=== PATIENT | female | born 1955 | race African-American/Black ===

== ENCOUNTER 2018-07-19 11:03 | Emergency (ER) | payer MEDICAID ==
[~2018-07-19] VITALS: Ht 157.5 cm; Wt 81.2 kg
[2018-07-19 11:06] VITALS: Ht 157.5 cm; Wt 81.2 kg
[2018-07-19] MEDS ORDERED: HYDR25TA6 PO ×2 (11:44→12:23)
[2018-07-19] MEDS ORDERED: AMLO-147 PO ×2 (11:44→12:23)
[2018-07-19] MEDS ORDERED: PRAV40TA76 PO (11:44)
[2018-07-19] MEDS ORDERED: LISI-471 PO ×2 (11:44→12:23)
[2018-07-19] MEDS ORDERED: SOD CHLORIDE 0.9% 500 ML IV ONE (12:00)
[2018-07-19] MEDS ORDERED: ALPRAZOLAM 0.25 MG TAB PO ONE (12:00)
[2018-07-19] MEDS ORDERED: AMLODIPINE 10 MG TAB PO ONE (12:00)
[2018-07-19] MEDS ORDERED: HYDROCHLOROTHIAZIDE 25 MG TAB PO ONE (12:00)
[2018-07-19] MEDS ORDERED: PRAV20TA63 PO (12:23)
--- NOTE | 2018-07-19 13:17 | ERD ---
ER Documentation Chief Complaint Chief Complaint HIGH BLOOD PRESSURE - OUT OF MEDICATION X 2 WEEKS HPI 63-year-old woman with a history of hypertension here for medication refill, she states she ran out of her medications about 2 weeks ago and today began to feel anxious. She denies chest pain or shortness of breath, no headache or blurry vision, no vomiting, no paresis or paresthesias. ROS All systems reviewed and are negative except as per history of present illness. Medications Home Meds Active Scripts Pravastatin Sodium* (Pravastatin Sodium*) 20 Mg Tablet, 20 MG PO HS, #60 TAB Prov:ONEIDA JHAVERI MD 07/19/18 Hydrochlorothiazide* (Hydrochlorothiazide*) 25 Mg Tab, 25 MG PO DAILY, #60 TAB Prov:ONEIDA JHAVERI MD 07/19/18 Lisinopril* (Lisinopril*) 20 Mg Tablet, 20 MG PO DAILY, #60 TAB Prov:ONEIDA JHAVERI MD 07/19/18 Amlodipine Besylate* (Amlodipine Besylate*) 10 Mg Tablet, 10 MG PO DAILY, #60 TAB Prov:ONEIDA JHAVERI MD 07/19/18 Reported Medications Pravastatin Sodium* (Pravastatin Sodium*) 40 Mg Tablet, 40 MG PO HS, TAB 07/19/18 Lisinopril* (Lisinopril*) 20 Mg Tablet, 20 MG PO DAILY, #30 TAB 07/19/18 Amlodipine Besylate* (Amlodipine Besylate*) 10 Mg Tablet, 10 MG PO DAILY, #30 TAB 07/19/18 Hydrochlorothiazide* (Hydrochlorothiazide*) 25 Mg Tab, 25 MG PO DAILY, #30 TAB 07/19/18 Allergies Allergies: Coded Allergies: No Known Allergy (Unverified , 07/19/18) PMhx/Soc Hypertension, anxiety Medical and Surgical Hx: pt denies Surgical Hx History of Surgery: No Anesthesia Reaction: No Hx Neurological Disorder: No Hx Respiratory Disorders: No Hx Cardiac Disorders: Yes (HTN, HYPERLIPEMIA) Hx Psychiatric Problems: No Hx Miscellaneous Medical Probl: No Hx Alcohol Use: No Hx Substance Use: No Hx Tobacco Use: No Smoking Status: Never smoker FmHx Family History: No diabetes Physical Exam Vitals Vital Signs Date Temp Pulse Resp B/P (MAP) Pulse Ox O2 O2 Flow FiO2 Time Delivery Rate 07/19/18 88 18 152/90 100 Room Air 12:23 (110) 07/19/18 97.4 90 20 216/106 100 Room Air 11:35 (142) 07/19/18 97.4 88 19 243/114 99 11:06 (157) Physical Exam GENERAL: Well-developed, well-nourished, appears anxious, afebrile HEENT: Moist mucous membranes, pink conjunctiva, no cervical spine tenderness or step-off deformities, no goiter, no jaundice or icterus, extraocular movements intact without pain. No submandibular induration, and no pharyngeal erythema NEURO: Alert and oriented 3, cranial nerves II through XII intact bilaterally, pupils equal round reactive to light, no focal deficits or facial asymmetry, sensation intact distally Strength 5/5 in upper and lower extremities bilaterally CARDIAC: Regular rate and rhythm, no murmurs rubs or gallops LUNGS: Clear bilaterally no wheezing crackles or stridor ABDOMEN: Soft nontender, no guarding, no rigidity, no rebound, no psoas sign no obturator sign. Normoactive bowel sounds SKIN: Warm and dry to touch, no abrasions, contusions, or hematomas, no lacerations, no ecchymosis, no target lesions, and without ulcers EXTREMITIES: No clubbing cyanosis or edema, calves are bilaterally symmetrical, no Homans sign, no popliteal cord sign. Distal pulses equal and bilateral PSYCH: Anxious Results 24 hrs Current Medications Medications Dose Sig/Farhana Start Time Status Last (Trade) Ordered Route PRN Stop Time Admin Dose Reason Admin Amlodipine 10 mg ONCE ONCE 07/19/18 DC 07/19/18 Besylate PO 12:00 12:23 (Norvasc) 07/19/18 12:01 25 mg ONCE ONCE 07/19/18 DC 07/19/18 Hydrochloroth PO 12:00 12:23 iazide 07/19/18 12:01 (Hydrochlorot hiazide) Sodium 500 ml @ Q1H ONCE 07/19/18 DC 07/19/18 Chloride 500 mls/hr IV 12:00 12:09 07/19/18 12:59 Alprazolam 0.5 mg ONCE ONCE 07/19/18 DC 07/19/18 (Xanax) PO 12:00 12:07 07/19/18 12:01 Procedures/MDM IV line was established patient was placed on manager monitoring rhythm strip revea led a sinus rhythm at about 80 bpm with upright P and T waves. Patient was afebrile I administered alprazolam 0.5 mg p.o., amlodipine 10 mg p.o., hydrochlorothiazide 25 mg p.o., 500 cc normal saline IV. Patient's anxiety resolved and blood pressure improved. She remains otherwise asymptomatic and is a good candidate for discharge and continued outpatient management. I did agree to refill all her prescriptions and recommended she follow-up with her PMD. Differential diagnoses considered, included but not limited to acute coronary syndrome, pulmonary embolism, aortic dissection, abdominal aortic aneurysm, sepsis, stroke, meningitis, encephalitis, pneumonia, appendicitis, cholecystitis, bowel obstruction, pyelonephritis, nephrolithiasis, cystitis, as well as metabolic, hematologic, and electrolyte abnormalities. As well as abscess, cellulitis, fractures, and dislocations. Patient feels much better at this time, and vital signs are normal, symptoms have improved. I did give strict instructions to return to the ED if symptoms continue or worsen, patient will otherwise follow-up with primary care physician. Patient understood instructions and agreed to plan. Disclaimer: Inadvertent spelling and grammatical errors are likely due to EHR/dictation software use and do not reflect on the overall quality of patient care. Also, please note that the electronic time recorded on this note does not necessarily reflect the actual time of the patient encounter. Departure Diagnosis: Primary Impression: Hypertension Hypertension type: essential hypertension Qualified Codes: I10 - Essential (primary) hypertension Additional Impression: Anxiety Condition: Good Patient Instructions: Anxiety Reaction, Hypertension, To Be Confirmed ONEIDA JHAVERI MD Jul 19, 2018 13:17
[2018-07-19 14:02] VITALS: BP 145/75; PULSE 96; RESP 18
== END 2018-07-19 14:54 | disposition home or self-care (01) ==
LOC: E/R 11:03
DX: I10 Essential (primary) hypertension (principal); F41.9 Anxiety disorder, unspecified
CPT/HCPCS: J7040; Z7502; Z7610